=== PATIENT | female | born 1950 | race Caucasian/White ===

== ENCOUNTER → 2016-11-28 | Outpatient (CLI) | payer OTHER ==
--- NOTE | 2016-11-29 11:15 | DX ---
DEXA Bone Densitometry Technique: DEXA scan was performed on [employer] W Bone Densitometer Indication: Osteopenia Comparator Study: October 2014 Results: Lumbar Spine BMD: 0.949 T-score: -0.6 Prior BMD: 0.948 % change: +0.2% Total Hip (Right) BMD: 0.823 T-score: -1.0 Prior BMD: 0.857 % Change: -3.9% Femoral Neck (Right) BMD: 0.654 T-score: -1.8 Total Hip (Left) BMD: 0.802 T-score: -1.1 Prior BMD: 0.849 % change: -5.5% Femoral Neck (Left) BMD: 0.652 T-score: -1.8 CONCLUSION: Osteopenia In comparison to prior study from October 2014 the patient measured BMD in the lumbar spine has not changed significantly. The patient's measured BMD in both hips has decreased significantly. ADDITIONAL COMMENTS: By FRAX calculation, the estimated 10 year probability of any major osteoporotic fractures 8.1%. The estimated 10 year probability of hip fracture is 1.0%. L4 was excluded from analysis due to prior surgery. Consider repeating the study in 2 years NOTE: The risk of osteoporotic fractures increases approximately twofold for each 1.0 SD decrease in T-score. The T-score represents the standard deviations from a young normal, same sex, reference po pulation. Low bone density is not the only risk factor for fracture. Clinical factors to consider include fall risk, previous osteoporotic fractures, family history of fractures, smoking, and low body weight. Patients who have an unexpectedly low BMD may need to be evaluated for secondary causes of low bone m ineral density. In comparing the present study to a prior study, lack of a significant increase or decrease in BMD ma y signify efficacy of the patient's present treatment. Bone mineral density measurements performed with densitometers produced by different manufacturers ar e not comparable. For the most reproducible BMD measurement, subsequent exams should be performed on the same densitometer.
== END ==
LOC: BMCIMAGING 14:01
PROVIDERS: ATTEND Internal Medicine
DX: Z13.820 Encounter for screening for osteoporosis (principal); M85.80 Other specified disorders of bone density and structure, unspecified site

== ENCOUNTER → 2016-12-11 | Outpatient (CLI) | payer OTHER ==
--- NOTE | 2016-12-11 14:28 | US ---
Ultrasound Pelvis Complete (Transabdominal and Endovaginal) Including Duplex/Doppler Imaging History: N92.0, excessive and frequent menstruation. Postmenopausal. Technique: Transabdominal and endovaginal ultrasound images were obtained. Endovaginal images obtain ed for better evaluation of the uterine myometrium and adnexa. Duplex/Doppler imaging of adnexa. Findings: Uterus measures 5.3 x 2.6 x 2.1 cm. Endometrial thickness is 2 mm. Fluid noted in the endo metrial canal measuring up to 4 mm in thickness and extending for 14 mm in length. Posterior right si de of the fundus there is an intramural calcified leiomyoma measuring 0.8 x 0.8 x 0.8 cm. Calcified l esion in the cervical region measuring 10 x 7 mm. Right ovary not visualized. Left ovary measures 1.5 x 1.5 x 0.9 cm. No adnexal masses. No significan t free fluid in the pelvis. Color Doppler flow to both ovaries without torsion. Impression: 1. Abnormal fluid in the endometrial canal without endometrial wall thickening. Recommend endometrial biopsy. 2. Probably benign calcified lesion in the cervical canal region measuring 1 cm. 3. Calcified leiomyoma in the posterior right side of the fundal region. 4. Right ovary not visualized.
== END ==
LOC: BRMIMAGING 13:03
PROVIDERS: ATTEND Internal Medicine
DX: N89.8 Other specified noninflammatory disorders of vagina (principal); D25.9 Leiomyoma of uterus, unspecified
CPT/HCPCS: 76856-PO